=== PATIENT | female | born 1995 | race Caucasian/White ===

== ENCOUNTER 2022-12-22 03:49 | Emergency (ER) | payer SELFPAY ==
[2022-12-22] MEDS ORDERED: LORazepam 2 MG/ML SYR.(CARPUJECT) ONE (04:04)
== END 2022-12-22 04:53 | disposition home or self-care (01) ==
LOC: ERS 03:49
DX: F41.9 Anxiety disorder, unspecified (principal)
CPT/HCPCS: 96372; 99283; J2060